=== PATIENT | female | born 1975 | race Caucasian/White ===

== ENCOUNTER 2019-01-14 11:35 | Emergency (ER) | payer SELFPAY ==
[2019-01-14 12:11] LABS: Bilirubin Negative (Negative); Blood, Urine Negative (Negative); Clarity Clear (Clear); Glucose, Urine (Dipstick) Negative (Negative); Leukocyte Negative (Negative); Nitrite Negative (Negative); Protein, Urine (Dipstick) Negative (Neg-Trace)
[2019-01-14 12:12] LABS: Pregnancy Test - Urine (BHCG) Negative (Negative); Pregu Control Background? CLEAR/WHITE (CLR/WHITE); Pregu Control Bar Appear? YES (CONTROL BAR)
[2019-01-14 12:35] LABS: #Basophils 0.1 thou/uL (0.0-0.2); #Eosinphils 0.4 thou/uL (0.0-0.7); #Neutrophils 8.6 thou/uL (1.40-6.50); %Basophils 0.8 % (0.0-1.0); %Eosinophils 2.9 % (0.0-10.0); %Lymphocytes 16.7 % (21.0-51.0); %Monocytes 8.6 % (0.0-10.0); Hemoglobin 13.3 g/dL (12.0-16.0); Mean Corpuscular HGB CONC 33.1 g/dL (32.0-36.0); Mean Corpuscular Hemoglobin 29.3 pg (27.0-31.0); Mean Corpuscular Volume 88.4 fL (78.0-98.0); Mean Platelet Volume 8.9 fL (7.4-10.4); Platelet Count 242 thou/uL (130-400); RBC Distribution Width 12.3 % (11.5-14.5); Red Blood Cell (RBC) Count 4.55 mill/uL (4.20-5.40); White Blood Cell (WBC) Count 12.1 thou/uL (4.8-10.8)
[2019-01-14 12:58] LABS: ALT (SGPT) 13 U/L (8-55); AST (SGOT) 15 U/L (5-34); Albumin 4.1 g/dL (3.5-5.0); Alkaline Phosphatase 63 U/L (40-150); Anion Gap 12 mmol/L (10-20); BUN (Urea Nitrogen) 10 mg/dL (7.0-18.7); Bilirubin, Total 0.3 mg/dL (0.2-1.2); Calc. Creatinine Clearance 0 mL/min (70-130); Calcium 9.1 mg/dL (7.8-10.44); Carbon Dioxide 25 mmol/L (22-29); Chloride 104 mmol/L (98-107); Estimated GFR-MDRD 79; Glucose 94 mg/dL (70-105); Lipase 28 U/L (8-78); Protein, Total 7.1 g/dL (6.0-8.3); Sodium 137 mmol/L (136-145)
--- NOTE | 2019-01-14 13:46 | CT ---
EXAM: CT Stone Protocol PROVIDED CLINICAL HISTORY: Abdominal pain COMPARISON: None FINDINGS: The visualized lung bases are free of significant opacity. There is right-sided perinephric fat stranding. There is no evidence for hydronephrosis. No urinary t ract calculi are evident. The solid abdominal organs are suboptimally evaluated in the absence of IV contrast material but demo nstrate an otherwise unremarkable unenhanced CT appearance. There is no additional inflammatory fat stranding, free fluid or free air apparent. The visualized po rtions of the appendix appear normal. The osseous structures demonstrate no concerning lytic or blastic lesions. IMPRESSION: Right-sided perinephric fat stranding without evidence for hydronephrosis or urinary tract calculi. C orrelate with concerns for pyelonephritis.
[2019-01-14 14:29] LABS: Bacteria/HPF 2+ HPF (None Seen); RBC/HPF None Seen HPF (0-3); Yeast-Budding Rare HPF (None Seen)
[2019-01-14] MEDS ORDERED: Ondansetron ODT 4 MG TAB ONE ×2 (14:32→14:35)
[2019-01-14] MEDS ORDERED: Cephalexin 250 MG CAP ONE (14:32)
== END 2019-01-14 14:37 | disposition home or self-care (01) ==
LOC: NAV ERS 11:35
DX: N10 Acute pyelonephritis (principal); J44.9 Chronic obstructive pulmonary disease, unspecified; F17.210 Nicotine dependence, cigarettes, uncomplicated
CPT/HCPCS: 74176; 80053; 81003; 81015; 81025; 83690; 85025; 87077; 87086; 87186; Q0162